=== PATIENT | female | born 1950 | race African-American/Black ===

== ENCOUNTER → 2020-11-14 | Outpatient (CLI) | payer OTHER, MEDICARE ==
--- NOTE | 2020-11-14 16:19 | RAD ---
EXAM: Pelvis, single view; thoracic spine, 3 views. HISTORY: Pain. COMPARISON: None. FINDINGS: Pelvis: A frontal view the pelvis is obtained. There is no fracture, dislocation or subluxation. The femoral heads are normal in configuration and seated appropriately. Thoracic spine: 4 views of the thoracic spine are obtained. There are hypoplastic T12 ribs, a normal variant. There is no fracture. There is no listhesis. IMPRESSION: No acute osseous finding. Electronically signed by: Mary Aguilera MD (11/14/2020 4:16 PM) [email or web address]
== END ==
LOC: DXRAD 15:18
PROVIDERS: ATTEND Specialist
DX: M54.5 Low back pain (principal)
CPT/HCPCS: 72072; 72170

== ENCOUNTER → 2021-02-12 | Outpatient (CLI) | payer MEDICARE ==
--- NOTE | 2021-02-12 16:59 | RAD ---
EXAM: Abdomen, single view. HISTORY: Pain. COMPARISON: None. FINDINGS: A frontal view of the abdomen is obtained. There is gas within nondistended loops of bowel throughout the abdomen. There is no transition point to suggest obstruction. IMPRESSION: Nonobstructive bowel gas pattern. Electronically signed by: Mary Aguilera MD (02/12/2021 4:57 PM) [email or web address]
== END ==
LOC: DXRAD 15:39
PROVIDERS: ATTEND Specialist
DX: R10.9 Unspecified abdominal pain (principal)
CPT/HCPCS: 74018

== ENCOUNTER → 2021-10-18 | Day surgery (SDC) | payer MEDICARE ==
[~2021-10-18] MED LIST: GLYCOPYRROLATE 1 MG/5 ML VIAL. ONE; HYDR12.572 PO; IPRATRPIUM/ALBUTEROL 0.5/2.5MG 3 ML NEBU. NEB PRN; IV RINGERS SOLUTION,LACTATED 1,000 ML IV SCH; LIDOCAINE 2% PF 5 ML VIAL. ONE; MIDAZOLAM HCL PF 2 MG/2 ML VIAL. IV ONE; OMEG1CAP38 PO; ONDANSETRON PF 4 MG/2 ML VIAL. IV PRN; POTA20TA4 PO; PROPOFOL 10,000 MCG/ML (20ML) VIAL IV ONE; calcium; calcium PO; multivitamin PO; vitamin D3 PO
[2021-10-18 13:41] VITALS: BP 164/76
== END | disposition home or self-care (01) ==
LOC: SURG 11:03
PROVIDERS: ATTEND Internal Medicine Gastroenterology
DX: Z12.11 Encounter for screening for malignant neoplasm of colon (principal); K64.8 Other hemorrhoids; K57.30 Diverticulosis of large intestine without perforation or abscess without bleeding; K63.89 Other specified diseases of intestine; I10 Essential (primary) hypertension; Z86.010 Personal history of colon polyps; Z79.899 Other long term (current) drug therapy; Z88.8 Allergy status to other drugs, medicaments and biological substances; Z98.890 Other specified postprocedural states; Z72.89 Other problems related to lifestyle
CPT/HCPCS: G0105; J2001; J2704; J3490; J7120